=== PATIENT | male | born 1960 | race African-American/Black ===

== ENCOUNTER 2018-01-24 10:14 | Observation (INO) | payer OTHER ==
[~2018-01-24] VITALS: Ht 172.7 cm; Wt 83.5 kg
[~2018-01-24 10:14] MED LIST: CYAN10005 PO; FOLI1TAB16 PO; TADA5TAB PO
[2018-01-24] MEDS ORDERED: MECLIZINE 12.5 MG TABLET. PO PRN (10:45)
[2018-01-24 11:07] LABS: BASO # 0.1 x10^3/uL (0.0-0.2); BASO % 2 % (0-3); EOS # 0.2 x10^3/uL (0.0-0.7); EOS % 6 % (0-3); HEMOGLOBIN 14.5 g/dL (13.0-17.5); LYMPH # 1.4 x10^3/uL (1.0-4.8); LYMPH % 39 % (24-48); MEAN CORPUSCULAR HEMOGLOBIN 33 pg (25-35); MEAN CORPUSCULAR HGB CONC 35 g/dL (31-37); MEAN CORPUSCULAR VOLUME 92 fL (79-100); MONO # 0.3 x10^3/uL (0.0-1.1); MONO % 8 % (0-9); NEUT # 1.7 x10^3uL (1.8-7.7); NEUT % 45 % (31-73); PLATELET COUNT 211 x10^3/uL (140-400); RED BLOOD COUNT 4.44 x10^6/uL (4.30-5.70); RED CELL DISTRIBUTION WIDTH 13.7 % (11.5-14.5); WHITE BLOOD COUNT 3.6 x10^3/uL (4.0-11.0)
--- NOTE | 2018-01-24 11:23 | RAD ---
EXAM: Chest, 2 views. HISTORY: Dizziness. COMPARISON: None. FINDINGS: Frontal and lateral views of the chest are obtained. There is no infiltrate, effusion or pneumothorax. There is slight elevation of the right hemidiaphragm. There is suspected right middle lobe atelectasis or scarring. The heart is normal in size. There is cervical spinal fusion instrumentation. IMPRESSION: 1. No acute pulmonary finding. 2. Mild elevation of the right hemidiaphragm and suspected middle lobe atelectasis or scarring. Electronically signed by: Cristine Gerardo MD (01/24/2018 11:19 AM) [place] [id number]
--- NOTE | 2018-01-24 11:24 | RAD ---
CT HEAD WO CONTRAST History: Dizziness and chest pain, symptoms for greater than 24 hours Comparison: None. Technique: Noncontrast CT imaging was performed of the head. Exposure: One or more of the following individualized dose reduction techniques were utilized for this examination: 1. Automated exposure control 2. Adjustment of the mA and/or kV according to patient size 3. Use of iterative reconstruction technique. Findings: No acute extra-axial or parenchymal hemorrhage is identified. There is no significant intra-axial mass effect, midline shift, or extra-axial fluid collection. The huang-white differentiation of the major vascular territories is preserved. The ventricles, sulci, and cisterns are within normal limits in size and configuration. The mastoid air cells and the visualized paranasal sinuses are aerated. No acute calvarial abnormality is identified. Impression: 1. No acute intracranial abnormality is identified. Electronically signed by: Murtaza New MD (01/24/2018 11:21 AM) [id number]
[2018-01-24 11:32] LABS: ALBUMIN 3.7 g/dL (3.4-5.0); CALCIUM 8.9 mg/dL (8.5-10.1); GFR 93.2; MAGNESIUM 2.1 mg/dL (1.8-2.4); POTASSIUM 3.8 mmol/L (3.5-5.1); TOTAL BILIRUBIN 0.5 mg/dL (0.2-1.0); TOTAL PROTEIN 7.5 g/dL (6.4-8.2)
--- NOTE | 2018-01-24 11:55 | PHYS DOC ---
Past History Past Medical History: No Pertinent History, GERD Past Surgical History: No Surgical History, Other Smoking: Non-smoker Alcohol Use: Occasionally Additional Alcohol Information: states drinks 2 rum/coke daily Drug Use: None Adult General Chief Complaint Chief Complaint: DIZZY/LIGHT HEADED [facility] HPI 57-year-old male patient complaining of constant dizziness since he woke up this morning that getting worse with movement of his head and change of position. Patient complaining of mild headache and blurred vision without nausea , change of hearing, tinnitus, fever and chills, focal neuro deficit, balance problems, head injury. Patient states he had episodes of mild dizziness previously but never had dizziness like today. Patient states for the last 3 hours he had tightness in substernal area and rated his pain for over 10 without shortness of breath or radiation of pain. Patient was seen by his primary care physician and had EKG and instructed to come to emergency room. Review of Systems Review of Systems Constitutional: Denies fever or chills [] Eyes: Denies change in visual acuity, redness, or eye pain ,reports mild vision[ ] HENT: Denies nasal congestion or sore throat [] Respiratory: Denies cough or shortness of breath [] Cardiovascular: No additional information not addressed in HPI [] GI: Denies abdominal pain, nausea, vomiting, bloody stools or diarrhea [] : Denies dysuria or hematuria [] Musculoskeletal: Denies back pain or joint pain [] Integument: Denies rash or skin lesions [] Neurologic: Reports headache and dizziness, denies focal weakness or sensory changes [] Endocrine: Denies polyuria or polydipsia [] All other systems were reviewed and found to be within normal limits, except as documented in this note. Current Medications Current Medications Current Medications Medications (Trade) Dose Ordered Sig/Sebastian Start Time Stop Time Status Last Admin Dose Admin Meclizine HCl (Antivert) 25 mg PRN Q6HRS PRN 01/24/18 10:45 01/24/18 11:14 25 MG Allergies Allergies Allergies Coded Allergies Type Severity Reaction Last Updated Verified Penicillins Allergy Intermediate 04/12/16 Yes hydrocodone Allergy Intermediate 04/12/16 Yes Physical Exam Physical Exam Constitutional: Well developed, well nourished, mild distress, non-toxic appearance. [] HENT: Normocephalic, atraumatic, bilateral external ears normal, oropharynx moist, no oral exudates, nose normal. [] Eyes: PERRLA, EOMI, conjunctiva normal, no discharge. [] Neck: Normal range of motion, no tenderness, supple, no stridor. [] Cardiovascular:Heart rate regular rhythm, no murmur [] Lungs & Thorax: Bilateral breath sounds clear to auscultation [] Abdomen: Bowel sounds normal, soft, no tenderness, no masses, no pulsatile masses. [] Skin: Warm, dry, no erythema, no rash. [] Back: No tenderness, no CVA tenderness. [] Extremities: No tenderness, no cyanosis, no clubbing, ROM intact, no edema. [] Neurologic: Alert and oriented X 3, normal motor function, normal sensory function, no focal deficits noted. [] Psychologic: Affect normal, judgement normal, mood normal. [] Current Patient Data Vital Signs Vital Signs Date Time Temp Pulse Resp B/P (MAP) Pulse Ox O2 Delivery O2 Flow Rate FiO2 01/24/18 11:28 66 20 159/104 (122) 99 Room Air 01/24/18 10:14 98.6 Lab Results Laboratory Tests Test 01/24/18 10:55 White Blood Count 3.6 x10^3/uL (4.0-11.0) L Red Blood Count 4.44 x10^6/uL (4.30-5.70) Hemoglobin 14.5 g/dL (13.0-17.5) Hematocrit 41.0 % (39.0-53.0) Mean Corpuscular Volume 92 fL (79-100) Mean Corpuscular Hemoglobin 33 pg (25-35) Mean Corpuscular Hemoglobin Concent 35 g/dL (31-37) Red Cell Distribution Width 13.7 % (11.5-14.5) Platelet Count 211 x10^3/uL (140-400) Neutrophils (%) (Auto) 45 % (31-73) Lymphocytes (%) (Auto) 39 % (24-48) Monocytes (%) (Auto) 8 % (0-9) Eosinophils (%) (Auto) 6 % (0-3) H Basophils (%) (Auto) 2 % (0-3) Neutrophils # (Auto) 1.7 x10^3uL (1.8-7.7) L Lymphocytes # (Auto) 1.4 x10^3/uL (1.0-4.8) Monocytes # (Auto) 0.3 x10^3/uL (0.0-1.1) Eosinophils # (Auto) 0.2 x10^3/uL (0.0-0.7) Basophils # (Auto) 0.1 x10^3/uL (0.0-0.2) Sodium Level 138 mmol/L (136-145) Potassium Level 3.8 mmol/L (3.5-5.1) Chloride Level 103 mmol/L (98-107) Carbon Dioxide Level 27 mmol/L (21-32) Anion Gap 8 (6-14) Blood Urea Nitrogen 15 mg/dL (8-26) Creatinine 1.0 mg/dL (0.7-1.3) Estimated GFR (Cockcroft-Gault) 93.2 BUN/Creatinine Ratio 15 (6-20) Glucose Level 103 mg/dL (70-99) H Calcium Level 8.9 mg/dL (8.5-10.1) Magnesium Level 2.1 mg/dL (1.8-2.4) Total Bilirubin 0.5 mg/dL (0.2-1.0) Aspartate Amino Transferase (AST) 30 U/L (15-37) Alanine Aminotransferase (ALT) 35 U/L (16-63) Alkaline Phosphatase 110 U/L (46-116) Creatine Kinase 875 U/L (39-308) H Creatine Kinase MB (Mass) 12.6 ng/mL (0.0-3.6) H Creatine Kinase MB Relative Index 1.4 % (0-4) Troponin I Quantitative < 0.017 ng/mL (0-0.055) XV-Hgp-L-Type Natriuretic Peptide 24 pg/mL (0-124) Total Protein 7.5 g/dL (6.4-8.2) Albumin 3.7 g/dL (3.4-5.0) Albumin/Globulin Ratio 1.0 (1.0-1.7) EKG EKG EKG interpreted by me. EKG at 1036 showed normal sinus rhythm at rate of 69, Q wave in inferior leads, no acute ST and T wave abnormality[] Radiology/Procedures Radiology/Procedures [] [address] [address] IMAGING REPORT Signed PATIENT: CHERRI LOMELI ACCOUNT: [id number] : 1960 LOCATION: ER AGE: 57 SEX: M EXAM STATUS: REG ER ORD. PHYSICIAN: GUERDA BURKETT MD REASON: dizziness and chest pain PROCEDURE: CHEST PA & LATERAL EXAM: Chest, 2 views. HISTORY: Dizziness. COMPARISON: None. FINDINGS: Frontal and lateral views of the chest are obtained. There is no infiltrate, effusion or pneumothorax. There is slight elevation of the right hemidiaphragm. There is suspected right middle lobe atelectasis or scarring. The heart is normal in size. There is cervical spinal fusion instrumentation. IMPRESSION: 1. No acute pulmonary finding. 2. Mild elevation of the right hemidiaphragm and suspected middle lobe atelectasis or scarring. Electronically signed by: Cristine Fuentes MD (01/24/2018 11:19 AM) [place] [id number] DICTATED AND SIGNED BY: CRISTINE FUENTES MD DATE: 01/24/18 3825 CC: BRAN CARO MD; GUERDA BURKETT MD ~ Course & Med Decision Making Course & Med Decision Making Pertinent Labs and Imaging studies reviewed. (See chart for details) Evaluation of patient in ER showed 57-year-old male patient with complaining of constant dizziness since this morning and chest pain for the last few of breath. Patient had unremarkable physical exam, with the head, EKG and labs except for mild elevation of CPK and CK-MB. Patient stated he he did heavy physical activity yesterday. Patient had mild elevation of blood pressure of 150s without history of hypertension and negative orthostatic vitals. Patient treated with IV fluid , meclizine, Toradol and states his headache did not change. Plan to admit the patient for observation. Dr. Caro informed at 1219 and agreed with plan of admission. Patient and his family informed of plan of care. Dragon Disclaimer Dragon Disclaimer This electronic medical record was generated, in whole or in part, using a voice recognition dictation system. Departure Departure: Impression: Primary Impression: Acute chest pain Additional Impressions: Benign positional vertigo Rhabdomyolysis Headache Disposition: ADMITTED INPATIENT (At 1219) Admitting Physician: Bran Caro Condition: IMPROVED Referrals: BRAN CARO MD (PCP) Problem Qualifiers GUERDA BURKETT MD Jan 24, 2018 11:55
[2018-01-24 12:29] LABS: BACTERIA,URINE 0 /HPF (0-FEW); BARBITURATES NEG (NEG); BENZODIAZEPINES NEG (NEG); BILIRUBIN,URINE NEG (NEG); CANNABINOIDS NEG (NEG); CLARITY,URINE CLEAR; COCAINE NEG (NEG); COLOR,URINE AMBER; GLUCOSE,URINE NEG (NEG); METHADONE NEG (NEG); NITRITE,URINE NEG (NEG); OPIATES NEG (NEG); PHENCYCLIDINE NEG (NEG); RBC,URINE 0 /HPF (0-2); SQUAMOUS EPITHELIAL CELL,UR FEW /LPF; UROBILINOGEN,URINE 1 mg/dL (0.2 mg/dL)
[2018-01-24 12:30] LABS: AMPHETAMINE/METHAMPHETAMINE NEG (NEG)
[2018-01-24] MEDS ORDERED: IV NORMAL SALINE 1,000ML 1,000 ML IV ONE (12:30)
[2018-01-24] MEDS ORDERED: KETOROLAC 30 MG/ML VIAL. IV ONE (12:40)
[2018-01-24] MEDS ORDERED: OMEP20TA63 PO (13:43)
[2018-01-24 13:51] VITALS: BP 149/94
[2018-01-24] MEDS ORDERED: NALBUPHINE 10 MG/ML AMPUL. IM ONE (14:15)
--- NOTE | 2018-01-24 16:11 | EKG ---
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
[2018-01-24] MEDS: IV NORMAL SALINE 1,000ML 1,000 ML IV SCH (18:30)
[2018-01-24 18:41] VITALS: BP 141/89
[2018-01-24 23:45] VITALS: BP 147/87
[2018-01-25] MEDS: IV NORMAL SALINE 1,000ML 1,000 ML IV SCH ×3 (05:14→22:12)
[2018-01-25 05:37] VITALS: BP 143/92
[2018-01-25] MEDS: FOLIC ACID 1 MG TABLET PO SCH (10:14)
[2018-01-25] MEDS: CYANOCOBALAMIN (VITAMIN B-12) 1,000 MCG TABLET. PO SCH (10:14)
[2018-01-25] MEDS: PANTOPRAZOLE 40 MG TABLET. PO SCH (10:14)
[2018-01-25 10:51] VITALS: BP 162/107
[2018-01-25] MEDS ORDERED: ACETAMINOPHEN 500 MG TABLET PO PRN (12:15)
[2018-01-25] MEDS: amLODIPine BESYLATE 5 MG TABLET PO SCH (12:48)
[2018-01-25] MEDS: ACETAMINOPHEN 500 MG TABLET PO PRN ×2 (12:49→18:10)
[2018-01-25 14:41] VITALS: BP 148/89
[2018-01-25] MEDS ORDERED: KETOROLAC 30 MG/ML VIAL. IV PRN (15:30)
--- NOTE | 2018-01-25 15:39 | HP ---
ADMIT DATE: 01/24/2018 CHIEF COMPLAINT: Dizziness and headaches. HISTORY OF PRESENT ILLNESS: This is a very pleasant 57-year-old -[place] Citizen male who was admitted through the Emergency Room today after he presented with chief complaints of acute onset of dizziness, described and steadiness and started this morning after he getting out of the bed. He denies spinning; however, the dizziness usually aggravated by changing his body positions or turning his head positions to any directions quickly. He denies nausea, vomiting, photophobia or phonophobia. He also described a blurred vision. The patient denies diplopia, dysphagia, dysarthria, weakness, and paresthesia. He also described epigastric and sometimes substernal chest pain, but he stated his symptoms were there for a long time. He underwent cardiac catheterization in 2016 and revealed no evidence of coronary artery disease. An echocardiogram revealed a normal left ventricular ejection fraction of 55%. The patient is on a business of [employer] and he was in the field yesterday and he walked too hard. He was given an injection of new pain and meclizine and according to the patient, his symptoms have improved and his headaches rated at 2/10 at this time. Initial nonenhanced head CT scan revealed no acute intracranial process. The patient also complains of intermittent lower back pain and he related to degenerative disk disease of the lumbar spine, required surgery and sometimes, he complains of intermittent neck pain radiating to the shoulder blades. The patient denies any recent falls or injuries. PAST MEDICAL HISTORY: Significant for rheumatoid arthritis, substernal chest pain, chronic headaches, GERD, neck and lower back pain. PAST SURGICAL HISTORY: Significant for hemorrhoidectomy, cervical spine and lumbosacral spine surgeries. FAMILY HISTORY: Positive for cardiovascular disease. SOCIAL HISTORY: The patient is . He has three children. He denies smoking, but he drinks alcohol nightly. REVIEW OF SYSTEMS: A 10-point review of system was performed and consistent to his intermittent dizziness described as unsteadiness when he changes his body positions or his head positions quickly. Otherwise, as mentioned above in history of present illness. CURRENT MEDICATIONS: Meclizine 25 mg at bedtime q.6 hours p.r.n. He was given Nubain 10 mg IM injection and previously given a Toradol 30 mg IV and he received 1 liter of normal saline. The patient takes folic acid, vitamin B12, and Prilosec. PHYSICAL EXAMINATION: GENERAL: Well-developed, well-nourished -[place] Citizen male, in no acute distress. He weighs 180 pounds, height 68 inches, and his BMI of 27.4. HEENT: Normocephalic, atraumatic, otherwise unremarkable. NECK: Supple. Negative for carotid bruit, lymphadenopathy or thyromegaly. LUNGS: Clear to A and P. CARDIOVASCULAR: Regular rate and rhythm, normal S1, S2. There is no S3, S4, murmur. ABDOMEN: Soft. Bowel sounds positive. EXTREMITIES: Negative for cyanosis, clubbing, edema. NEUROLOGIC: 1. Mental status: The patient is alert and oriented x 3. Speech is difficult. There is no language dysfunction. The patient denies hallucination or delusion. 2. Cranial nerves: Visual pham are full. The pupils are reactive to light and accommodation. Extraocular movements are intact. There is no nystagmus. There is no facial motor or sensory deficit. Hearing is intact bilaterally; however, the patient stated he has mild hearing loss. The palate elevated symmetrically. Sternocleidomastoid muscles are powerful bilaterally. The patient shrugs his shoulders symmetrically and protrudes his tongue in the midline without fasciculation or atrophy. 3. Motor Examination: No focal muscle bulk was seen. The tone is normal. The strength is 5/5 in the upper extremities 4/5 in the proximal lower extremities. 4. Sensory Examination: Reveals normal pinprick and light touch senses throughout. Deep tendon reflexes were symmetric and active. Deep tendon reflexes were symmetrical and hypoactive throughout. Stance is steady and the gait is normal. LABORATORY DATA: The CBC of blood cells of 3,600, hemoglobin for 14.5, hematocrit 41, platelet count 211,000. Chemistry revealed sodium of 138, potassium 3.8, chloride 103, CO2 of 27, BUN 15, creatinine 1, glucose at 1.3, calcium 8.9, liver enzymes are normal. Creatine kinase is elevated at 875, CK-MB index is normal at 1.4. Troponin level is normal and NPB is 24. Urinalysis is negative. Urine drug screen is negative as well. IMPRESSION: 1. New onset of dizziness, aggravated by quick changes of body positions or to make quickly to any directions without evidence of nystagmus, benign positional vertigo versus dehydration with elevated creatinine kinase. 2. Mild leukopenia. 3. History of rheumatoid arthritis, chronic low back pain, and neck pain secondary to degenerative disk disease, required surgeries. RECOMMENDATION: 1. Continue with the meclizine for now and careful hydrations with 1 liter of normal saline. 2. Continue with the current management for tension headache with non-steroidal anti-inflammatory drugs as needed. We will repeat his creatinine kinase in the morning. BRAN CARO MD DR: LAURA/gil JOB#: [id number] / [id number]
--- NOTE | 2018-01-25 15:56 | PN ---
DATE: 01/25/2018 SUBJECTIVE: The patient denies any new neurological complaints. He complains of intermittent mild frontal headaches. He denies nausea, vomiting, photophobia, phonophobia, chest pain, shortness of breath or palpitations. The patient stated his dizziness is gone. OBJECTIVE: GENERAL: Well-developed, well-nourished male, not in acute distress. VITAL SIGNS: Blood pressure 148/89, respiratory rate 20, pulse is 76, temperature 98.3, oxygen saturation 97% on room air. HEENT: Normocephalic, atraumatic, otherwise unremarkable. NECK: Supple. Negative for carotid bruit, lymphadenopathy, or thyromegaly. LUNGS: Clear to A and P. CARDIOVASCULAR: Regular rate and rhythm, normal S1-S2. There is no S3, S4, or murmur. ABDOMEN: Soft. Bowel sounds positive. EXTREMITIES: Negative for cyanosis, clubbing, or pitting edema. NEUROLOGICAL EXAM: Mental Status: The patient is alert and oriented x 3. Speech is fluent. There is no language dysfunction. Memory, judgment, and abstract thinking are normal. The patient denies hallucination or delusion. Cranial nerves are intact. Motor Examination: No focal muscle bulk was seen. The tone is normal. The strength is 5/5 throughout. Sensory examination revealed normal pinprick, light touch, vibratory, and position senses. Deep tendon reflexes were symmetric and active without pathologic responses. Gait and coordination are normal. LABORATORY DATA: CK is down to 527 from 877 yesterday. Troponin level is less than 0.017. IMPRESSION: 1. Acute onset of headaches and dizziness - improved. 2. Hypertension. 3. Benign positional vertigo versus dehydration and elevated CK. 4. History of rheumatoid arthritis. 5. Chronic low back pain and neck pain secondary to degenerative disk disease, requiring surgeries. 6. Dehydration versus rhabdomyolysis. RECOMMENDATIONS: 1. Continue with current management initiated by Dr. Cannon including IV fluid with Tylenol for headaches. 2. The patient has been scheduled to be seen by a associate professor of radiology today. Neurologically he is stable. M Tiffanie FAIRCHILD MD DR: IDALIA/gil JOB#: [id number] / [id number]
--- NOTE | 2018-01-25 16:29 | EKG ---
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
[2018-01-25 19:49] VITALS: BP 138/86
[2018-01-25 23:25] VITALS: BP 128/81
[2018-01-26] MEDS: ACETAMINOPHEN 500 MG TABLET PO PRN ×2 (05:25→11:30)
[2018-01-26 05:32] VITALS: BP 131/86
[2018-01-26 06:44] LABS: CALCIUM 8.5 mg/dL (8.5-10.1); GFR 93.2; POTASSIUM 3.7 mmol/L (3.5-5.1)
[2018-01-26 06:50] LABS: HEMATOCRIT 43.9 % (39.0-53.0); RED BLOOD COUNT 4.69 x10^6/uL (4.30-5.70); RED CELL DISTRIBUTION WIDTH 13.8 % (11.5-14.5); WHITE BLOOD COUNT 3.1 x10^3/uL (4.0-11.0)
[2018-01-26] MEDS: FOLIC ACID 1 MG TABLET PO SCH (08:49)
[2018-01-26] MEDS: amLODIPine BESYLATE 5 MG TABLET PO SCH (08:49)
[2018-01-26] MEDS: PANTOPRAZOLE 40 MG TABLET. PO SCH (08:49)
[2018-01-26] MEDS: CYANOCOBALAMIN (VITAMIN B-12) 1,000 MCG TABLET. PO SCH (08:50)
[2018-01-26 11:07] VITALS: BP 149/98
--- NOTE | 2018-01-26 11:55 | PDOC2 ---
CONSULT Date of Admission DATE: 01/26/18 TIME: 11:55 Reason for Consult: Dizziness Referring Physician: Dr. Cannon Chief Complaint Dizziness Source: Chart review, Patient Problem List Problems Medical Problems: (1) Acute chest pain Status: Acute (2) Benign positional vertigo Status: Acute (3) Headache Status: Acute (4) Rhabdomyolysis Status: Acute History of Present Illness 57-year-old -[place] male with history of hypertension presented with dizziness and lightheadedness that started after he got out of his bed yesterday morning. Since symptoms did not seem to get better, he presented to ED. On further interrogation, he stated that he has had several episodes of dizziness in the past not necessarily related to posture. He denied any valentina syncope as such. He also complained of intermittent episodes of atypical chest pain but denied any orthopnea/PND or palpitations. Past Medical History Hypertension Rheumatoid arthritis Chronic headaches Gastroesophageal reflux disease Past Surgical History Hemorrhoidectomy Cervical and lumbosacral spine surgeries Family History Hypertension Social History Admitted to social alcohol intake but denied any smoking or drug abuse Current Medications Current Medications Meclizine HCl (Antivert) 25 mg PRN Q6HRS PRN PO DIZZINESS Last administered on 01/24/18at 11:14; Start 01/24/18 at 10:45 Sodium Chloride 1,000 ml @ 1,000 mls/hr 1X ONCE IV Last administered on at 12:39; Start 01/24/18 at 12:30; Stop 01/24/18 at 13:29; Status DC Ketorolac Tromethamine (Toradol) 30 mg 1X ONCE IV Last administered on at 12:39; Start 01/24/18 at 12:40; Stop 01/24/18 at 12:41; Status DC Nalbuphine HCl (Nubain) 10 mg 1X ONCE IM Last administered on 01/24/18at 14:12 ; Start 01/24/18 at 14:15; Stop 01/24/18 at 14:16; Status DC Sodium Chloride 1,000 ml @ 75 mls/hr [id number] IV Last administered on at 22:12; Start 01/24/18 at 18:30 Cyanocobalamin (Vitamin B-12) 2,000 mcg DAILY PO Last administered on at 08:50; Start 01/25/18 at 09:00 Folic Acid (Folic Acid) 1 mg DAILY PO Last administered on 01/26/18at 08:49; Start 01/25/18 at 09:00 Pantoprazole Sodium (Protonix) 40 mg DAILYAC PO Last administered on 01/26/18at 08:49; Start 01/25/18 at 07:30 Acetaminophen (Tylenol) 650 mg PRN Q6HRS PRN PO PAIN / TEMP; Start 01/25/18 at 12:15; Stop 01/25/18 at 12:33; Status DC Amlodipine Besylate (Norvasc) 10 mg DAILY PO Last administered on 01/26/18at 08: 49; Start 01/25/18 at 12:15 Acetaminophen (Tylenol) 1,000 mg PRN Q6HRS PRN PO PAIN / TEMP Last administered on 01/26/18at 11:30; Start 01/25/18 at 12:33 Ketorolac Tromethamine (Toradol) 30 mg Q8HRS PRN IV PAIN Last administered on at 15:57; Start 01/25/18 at 15:30; Stop 01/30/18 at 15:29 Active Scripts Active Reported Prilosec Otc (Omeprazole Magnesium) 20 Mg Tablet.dr 1 Tab PO DAILY Vitamin B-12 (Cyanocobalamin (Vitamin B-12)) 1,000 Mcg Tablet 2,000 Mcg PO DAILY Folic Acid 1 Mg Tablet 1 Mg PO DAILY Allergies: Coded Allergies: Penicillins (Verified Allergy, Intermediate, 04/12/16) hydrocodone (Verified Allergy, Intermediate, 04/12/16) PSYCHOLOGICAL ROS: No: Hallucinations Eyes: No: Loss of vision HEENT: YES: Heacaches, No: Epistaxis Respiratory: No: Hemoptysis, Shortness of breath Cardiovascular: yes: Chest Pain, No: Edema Gastrointestinal: No: Vomiting Neurological: YES: Dizziness, No: Memory Loss, Seizures Skin: No: Rash General: Alert, Oriented X3 HEENT: Atraumatic, PERRLA Lungs: Clear to auscultation Heart: Regular rate Abdomen: Soft, No tenderness Extremities: No edema VITALS Vital Signs Date Time Temp Pulse Resp B/P (MAP) Pulse Ox O2 Delivery O2 Flow Rate FiO2 01/26/18 11:07 97.6 79 20 149/98 (115) 98 Room Air Labs Laboratory Tests Test 01/24/18 12:10 01/24/18 15:17 01/24/18 18:30 01/25/18 05:45 Urine Collection Type Unknown Urine Color Mei Urine Clarity Clear Urine pH 7.0 Urine Specific [place] 1.020 Urine Protein Trace (NEG-TRACE) Urine Glucose (UA) Neg mg/dL (NEG) Urine Ketones (Stick) Neg mg/dL (NEG) Urine Blood Neg (NEG) Urine Nitrite Neg (NEG) Urine Bilirubin Neg (NEG) Urine Urobilinogen Dipstick 1 mg/dL (0.2 mg/dL) Urine Leukocyte Esterase Neg (NEG) Urine RBC 0 /HPF (0-2) Urine WBC 1-4 /HPF (0-4) Urine Squamous Epithelial Cells Few /LPF Urine Bacteria 0 /HPF (0-FEW) Urine Mucus Slight /LPF Urine Opiates Screen Neg (NEG) Urine Methadone Screen Neg (NEG) Urine Barbiturates Neg (NEG) Urine Phencyclidine Screen Neg (NEG) Urine Amphetamine/Methamphetamine Neg (NEG) Urine Benzodiazepines Screen Neg (NEG) Urine Cocaine Screen Neg (NEG) Urine Cannabinoids Screen Neg (NEG) Urine Ethyl Alcohol Neg (NEG) Troponin I Quantitative < 0.017 ng/mL (0-0.055) < 0.017 ng/mL (0-0.055) Creatine Kinase 527 U/L (39-308) Test 01/26/18 06:07 White Blood Count 3.1 x10^3/uL (4.0-11.0) Red Blood Count 4.69 x10^6/uL (4.30-5.70) Hemoglobin 15.0 g/dL (13.0-17.5) Hematocrit 43.9 % (39.0-53.0) Mean Corpuscular Volume 94 fL (79-100) Mean Corpuscular Hemoglobin 32 pg (25-35) Mean Corpuscular Hemoglobin Concent 34 g/dL (31-37) Red Cell Distribution Width 13.8 % (11.5-14.5) Platelet Count 208 x10^3/uL (140-400) Sodium Level 138 mmol/L (136-145) Potassium Level 3.7 mmol/L (3.5-5.1) Chloride Level 104 mmol/L (98-107) Carbon Dioxide Level 25 mmol/L (21-32) Anion Gap 9 (6-14) Blood Urea Nitrogen 8 mg/dL (8-26) Creatinine 1.0 mg/dL (0.7-1.3) Estimated GFR (Cockcroft-Gault) 93.2 Glucose Level 111 mg/dL (70-99) Calcium Level 8.5 mg/dL (8.5-10.1) Assessment/Plan 1. Dizziness of uncertain etiology most probably related to his elevated blood pressure. Cannot rule out the possibility of benign positional vertigo. Neurology team following. 2-D echo in 2016 showed normal LV systolic function. If workup is negative, we will consider outpatient event monitor and repeat 2-D echo. 2. Accelerated hypertension: Better controlled since admission 3. Chest pain with atypical features most probably GI etiology. Patient had cardiac catheterization in 2016 that did not show any significant coronary artery disease. Thank you for your consultation. Problems: SUNNI MCCALL MD Jan 26, 2018 11:55
[2018-01-26] MEDS ORDERED: AMLO10TA2 PO (13:10)
--- NOTE | 2018-01-26 13:35 | DS ---
DATE OF DISCHARGE: 01/26/2018 DATE OF DISCHARGE: 01/26/2018 REFERRING PHYSICIAN: Duran Cannon M.D. DISCHARGE DIAGNOSES: 1. New onset of dizziness, aggravated by quick changes of body positions or head positions. Rule out benign positional vertigo. 2. Dehydration/rhabdomyolysis. 3. Tension headaches. 4. Acute chest pain. 5. Gastroesophageal reflux disease. 6. History of rheumatoid arthritis. HOSPITAL COURSE: The patient is a 57-year-old -[place] male who was admitted through Emergency Room with a chief complaint of dizziness, chest pain and headaches. During this hospitalization, he was found to have hypertension. Because of chest pain, EKG and cardiac enzymes along with troponin levels were performed and revealed no abnormalities. Initial head CT scan revealed no acute intracranial abnormalities and chest x-ray was performed and revealed no acute pulmonary findings and possible right middle lobe atelectasis of mild severity. Because of his high blood pressure, the patient was placed on amlodipine 10 mg daily. . ____, obiee report developer has seen the patient and recommended followup on an outpatient basis for possible treadmill stress test. After being on amlodipine, his blood pressure has improved. Currently, the patient denies any recurrence of dizziness or chest pain. His vital signs remained stable and blood pressure this morning was 131/86, respiratory rate 20 and pulse of regular sinus at 79 and he was afebrile. His medical and neurological examinations are unremarkable. CONDITION ON DISCHARGE: Good. CURRENT HOME MEDICATIONS ON DISCHARGE: Include amlodipine 10 mg p.o. daily, folic acid 1 mg daily, vitamin B12 2000 mcg daily, pantoprazole 40 mg daily, meclizine 25 mg q.6 hours on p.r.n. basis for dizziness. DISCHARGE INSTRUCTIONS; 1. Continue with current hospital medications as mentioned above. 2. Follow up with Dr. Cannon after 2 weeks. 3. Follow up with obiee report developer. M Tiffanie FAIRCHILD MD DR: IDALIA/gil JOB#: [id number] / [id number]
== END 2018-01-26 13:30 | disposition home or self-care (01) ==
LOC: ER 10:14 → 1 SOUTH 13:40 → INTOOBSV 13:40
PROVIDERS: ADMIT Family Medicine; ATTEND Family Medicine
DX: R42 Dizziness and giddiness (principal); K21.9 Gastro-esophageal reflux disease without esophagitis; G89.29 Other chronic pain; D72.819 Decreased white blood cell count, unspecified; M06.9 Rheumatoid arthritis, unspecified; I10 Essential (primary) hypertension; E86.0 Dehydration; Z82.49 Family history of ischemic heart disease and other diseases of the circulatory system
CPT/HCPCS: 36415; 70450; 71046; 80048; 80053; 80307; 81001; 82550; 82553; 83735; 83880; 84484; 85025; 85027; 93005; 96361; 96372; 96374; 96376; 99285; G0378; G0379; J1885; J2300; J8597; G0479; J7030

== ENCOUNTER 2018-02-16 06:38 | Emergency (ER) | payer OTHER ==
[~2018-02-16] VITALS: Ht 172.7 cm; Wt 78.0 kg
[~2018-02-16 06:38] MED LIST changes: +AMLO10TA2 PO; +OMEP20TA63 PO
[2018-02-16 06:57] VITALS: BP 125/88
[2018-02-16] MEDS ORDERED: KETOROLAC 60 MG/2 ML VIAL. IM ONE (07:00)
[2018-02-16] MEDS ORDERED: CEPH-264 PO (07:12)
[2018-02-16] MEDS ORDERED: MAGN296S9 PO (07:12)
[2018-02-16] MEDS ORDERED: OXYC-323 PO (07:12)
[2018-02-16] MEDS ORDERED: HYDR30CR61 TP ×2 (07:12→07:17)
--- NOTE | 2018-02-16 07:12 | PHYS DOC ---
Past History Past Medical History: GERD Past Surgical History: No Surgical History Smoking: Non-smoker Alcohol Use: Occasionally Drug Use: None Adult General Chief Complaint Chief Complaint: HEMORRHOIDS HPI HPI 57-year-old male patient with history of constipation and hemorrhoids complaining of pain and anal area for the last several days associated with constipation. Patient states he was seen by his primary care physician and treated with Proctofoam without improvement of his condition. Patient states he is not able to walk or sit down because of severe pain and rated his pain 10 over 10. Patient denies abdominal pain, nausea and vomiting, fever and chills. Review of Systems Review of Systems Constitutional: Denies fever or chills [] Eyes: Denies change in visual acuity, redness, or eye pain [] HENT: Denies nasal congestion or sore throat [] Respiratory: Denies cough or shortness of breath [] Cardiovascular: No additional information not addressed in HPI [] GI: Denies abdominal pain, nausea, vomiting, bloody stools or diarrhea [] : Denies dysuria or hematuria [] Musculoskeletal: Denies back pain or joint pain [] Integument: Denies rash or skin lesions [] Neurologic: Denies headache, focal weakness or sensory changes [] Endocrine: Denies polyuria or polydipsia [] All other systems were reviewed and found to be within normal limits, except as documented in this note. Current Medications Current Medications Current Medications Medications (Trade) Dose Ordered Sig/Sebastian Start Time Stop Time Status Last Admin Dose Admin Ketorolac Tromethamine (Toradol) 60 mg 1X ONCE 02/16/18 07:00 02/16/18 07:01 UNV Allergies Allergies Allergies Coded Allergies Type Severity Reaction Last Updated Verified Penicillins Allergy Intermediate 04/12/16 Yes hydrocodone Allergy Intermediate 04/12/16 Yes Physical Exam Physical Exam Constitutional: Well developed, well nourished, moderate distress, non-toxic appearance. [] HENT: Normocephalic, atraumatic Eyes: PERRLA, EOMI, conjunctiva normal, no discharge. [] Neck: Normal range of motion, no tenderness, supple, no stridor. [] Cardiovascular:Heart rate regular rhythm, no murmur [] Lungs & Thorax: Bilateral breath sounds clear to auscultation [] Abdomen: Bowel sounds normal, soft, no tenderness, no masses, no pulsatile masses. Rectal exam with present of aircraft servicer showed[ several hemorrhoidal skin tags anal area without sign of thrombosed or bleeding, anal fissure at 6 with severe tenderness, unable to complete rectal exam because of pain Neurologic: Alert and oriented X 3, normal motor function, normal sensory function, no focal deficits noted. [] Psychologic: Anxious, judgement normal, mood normal. [] Current Patient Data Vital Signs Vital Signs Date Time Temp Pulse Resp B/P (MAP) Pulse Ox O2 Delivery O2 Flow Rate FiO2 02/16/18 06:57 97.5 77 20 99 Room Air EKG EKG [] Radiology/Procedures Radiology/Procedures [] Course & Med Decision Making Course & Med Decision Making discharge: I've spoken with the patient and/or caregivers. I've explained the patient's condition, diagnosis and treatment plan based on information available to me at this time. I've answered the patient's and/or caregivers questions and addressed any concerns. The patient and/or caregivers have a good understanding the patient's diagnosis, condition and treatment plan as can be expected at this point. Vital signs have been stabilized. The patient's condition is stable for discharge from the emergency department. The patient will pursue further outpatient evaluation with her primary care provider or other designated consulting physician as outlined in the discharge instructions. Patient and/or caregivers are agreeable to this plan of care and follow-up instructions have been explained in detail. The patient and/or caregivers have received these instructions in written format and expressed understanding of these discharge instructions. The patient and her caregivers are aware that if any significant change in condition or worsening of symptoms should prompt him to immediately return to this of the closest emergency department. If an emergent department is not readily available I would encourage him to call 911. Jarad Disclaimer Dragon Disclaimer This electronic medical record was generated, in whole or in part, using a voice recognition dictation system. Departure Departure: Impression: Primary Impression: Acute anal fissure Additional Impressions: Hemorrhoids Constipation Disposition: HOME, SELF-CARE (At 0715) Condition: IMPROVED Referrals: BRAN CARO MD (PCP) NAI MEDLEY MD Patient Instructions: Anal Fissure, Adult, Constipation, Adult, Hemorrhoids, Sitz Bath Additional Instructions: Drink plenty of liquids Follow-up with your primary care physician in 3-5 days Return to ER if not getting better Use sitz baths several times a day Scripts Hydrocortisone (ANUSOL-HC) 30 Gm Cream..g. 1 MYNOR TP BID, #60 GM 2 Refills Prov: GUERDA BURKETT MD 02/16/18 Magnesium Citrate (MAGNESIUM CITRATE) 296 Ml Solution 296 ML PO ONCE, #296 ML Prov: GUERDA BURKETT MD 02/16/18 Oxycodone Hcl/Acetaminophen (PERCOCET 5-325 MG TABLET) 1 Each Tablet 1-2 TAB PO Q4-6HRS, #14 TAB Prov: GUERDA BURKETT MD 02/16/18 Cephalexin (KEFLEX) 500 Mg Capsule 1 CAP PO QID, #28 CAP Prov: GUERDA BURKETT MD 02/16/18 Problem Qualifiers GUERDA BURKETT MD Feb 16, 2018 07:12
== END 2018-02-16 07:21 | disposition home or self-care (01) ==
LOC: ER 06:38
DX: K60.0 Acute anal fissure (principal); K64.9 Unspecified hemorrhoids; K59.00 Constipation, unspecified; K21.9 Gastro-esophageal reflux disease without esophagitis; Z88.0 Allergy status to penicillin; Z88.5 Allergy status to narcotic agent
CPT/HCPCS: 96372; 99283; J1885

== ENCOUNTER 2018-02-17 21:01 | Emergency (ER) | payer OTHER ==
[~2018-02-17 21:01] MED LIST changes: +CEPH-264 PO; +HYDR30CR61 TP; +MAGN296S9 PO; +OXYC-323 PO
[2018-02-17] MEDS: IV NORMAL SALINE 1,000ML 1,000 ML IV SCH (21:16)
[2018-02-17] MEDS: IOHEXOL 300 MG/ML 75 ML VIAL. IV ONE (21:45)
[2018-02-17 21:47] LABS: CALCIUM 9.4 mg/dL (8.5-10.1); CREATININE 1.1 mg/dL (0.7-1.3); GFR 83.5; POTASSIUM 4.4 mmol/L (3.5-5.1)
--- NOTE | 2018-02-17 21:55 | RAD ---
RS Compliance Statement: One or more of the following individualized dose reduction techniques were utilized for this examination: 1. Automated exposure control 2. Adjustment of the mA and/or kV according to patient size 3. Use of iterative reconstruction technique CT HEAD WITHOUT CONTRAST History: 488978.001 Headache, dizziness, left sided weakness. Comparison: CT head without contrast, January 24, 2018. Procedure: Axial images are obtained of the head from the skull base through the vertex without IV contrast. Findings: The ventricles and sulci are normal for the patient's age. No mass-effect, midline shift, hemorrhage, extra-axial fluid collection, or obvious acute infarction is identified. Basilar cisterns are patent. Bone windows demonstrate no acute calvarial abnormality. The visualized paranasal sinuses are clear. Mastoid air cells are well aerated. IMPRESSION: No acute intracranial abnormality. Electronically signed by: Bryan Mcnair MD (02/17/2018 9:52 PM) [facility]
[2018-02-17] MEDS: KETOROLAC 30 MG/ML VIAL. IV ONE (22:32)
[2018-02-17] MEDS: METOCLOPRAMIDE HCL 10 MG/2 ML VIAL. IV ONE (22:33)
[2018-02-17] MEDS: diphenhydrAMINE 50 MG/ML VIAL IVP ONE (22:33)
[2018-02-17] MEDS: DEXAMETHASONE SOD PHOS 10 MG/ML VIAL IV ONE (22:33)
[2018-02-17 22:34] LABS: BASO % 1 % (0-3); EOS # 0.1 x10^3/uL (0.0-0.7); EOS % 3 % (0-3); HEMATOCRIT 41.7 % (39.0-53.0); HEMOGLOBIN 14.6 g/dL (13.0-17.5); LYMPH % 24 % (24-48); MEAN CORPUSCULAR HEMOGLOBIN 32 pg (25-35); MEAN CORPUSCULAR HGB CONC 35 g/dL (31-37); MEAN CORPUSCULAR VOLUME 91 fL (79-100); MONO # 0.2 x10^3/uL (0.0-1.1); MONO % 5 % (0-9); NEUT # 2.7 x10^3uL (1.8-7.7); NEUT % 67 % (31-73); PLATELET COUNT 211 x10^3/uL (140-400); RED BLOOD COUNT 4.57 x10^6/uL (4.30-5.70); RED CELL DISTRIBUTION WIDTH 13.3 % (11.5-14.5)
--- NOTE | 2018-02-17 22:34 | RAD ---
PQRS Compliance Statement: One or more of the following individualized dose reduction techniques were utilized for this examination: 1. Automated exposure control 2. Adjustment of the mA and/or kV according to patient size 3. Use of iterative reconstruction technique CT ANGIOGRAPHY HEAD Clinical Indication: Headache, dizziness, left sided weakness. Comparison: CT head without contrast, earlier same day. Technique: Helical CT imaging from about the level of C6 to the skull vertex is performed after 75 cc of Omnipaque [address] angiogram protocol. 3-D MIP reconstructions of the cervical carotid arteries and elem of Spears are performed. PQRS Compliance Statement - Stenosis calculations for CT, MR and conventional angiography are based upon measurement of the distal ICA diameter in accordance with the NASCET methodology. Stenosis calculations for carotid ultrasound studies are derived from validated velocity criteria which are known to correlate with the NASCET methodology. Findings: Visualized common carotid arteries are patent. The cervical internal carotid arteries are patent. The visualized cervical vertebral arteries are patent. No evidence of dissection. The basilar artery and posterior cerebral arteries are patent. Distal internal carotid arteries are patent. Anterior circulation is intact. No evidence of intracranial aneurysm. No abnormal enhancement in the brain parenchyma. Uncovertebral and facet joint hypertrophy contribute to neural foraminal narrowing in the cervical spine. There is anterior fusion hardware of C5, incompletely imaged. There is no cervical adenopathy. IMPRESSION: No intracranial stenosis or occlusion or aneurysm or vascular malformation. Electronically signed by: Bryan Mcnair MD (02/17/2018 10:30 PM) [facility]
[2018-02-17 23:12] VITALS: BP 147/93
--- NOTE | 2018-02-18 00:05 | PHYS DOC ---
Past History Past Medical History: Hypertension Past Surgical History: No Surgical History Smoking: Non-smoker Alcohol Use: None Drug Use: None Adult General Chief Complaint Chief Complaint: WEAKNESS/GENERALIZED HPI HPI 57-year-old male with a history of hypertension now presents to the emergency department complaining of gradual onset of headache. Patient has no visual speech changes. No problems with strength coordination or gait. No chest pain or shortness of breath no other complaints Review of Systems Review of Systems Constitutional: Denies fever or chills [] Eyes: Denies change in visual acuity, redness, or eye pain [] HENT: Denies nasal congestion or sore throat [] Respiratory: Denies cough or shortness of breath [] Cardiovascular: No additional information not addressed in HPI [] GI: Denies abdominal pain, nausea, vomiting, bloody stools or diarrhea [] : Denies dysuria or hematuria [] Musculoskeletal: Denies back pain or joint pain [] Integument: Denies rash or skin lesions [] Neurologic: Denies headache, focal weakness or sensory changes [] Endocrine: Denies polyuria or polydipsia [] All other systems were reviewed and found to be within normal limits, except as documented in this note. Current Medications Current Medications Current Medications Medications (Trade) Dose Ordered Sig/Sebastian Start Time Stop Time Status Last Admin Dose Admin Dexamethasone Sodium Phosphate (Decadron) 10 mg 1X ONCE 02/17/18 21:45 02/17/18 21:46 DC 02/17/18 22:33 10 MG Diphenhydramine HCl (Benadryl) 25 mg 1X ONCE 02/17/18 21:45 02/17/18 21:46 DC 02/17/18 22:33 25 MG Iohexol (Omnipaque 300 Mg/ml) 75 ml 1X ONCE 02/17/18 21:45 02/17/18 21:46 DC 02/17/18 21:45 75 ML Ketorolac Tromethamine (Toradol) 30 mg 1X ONCE 02/17/18 21:45 02/17/18 21:46 DC 02/17/18 22:32 30 MG Metoclopramide HCl (Reglan Vial) 10 mg 1X ONCE 02/17/18 21:45 02/17/18 21:46 DC 02/17/18 22:33 10 MG Sodium Chloride 1,000 ml @ 1,000 mls/hr Q1H 02/17/18 21:16 02/17/18 21:16 1,000 MLS/HR Allergies Allergies Allergies Coded Allergies Type Severity Reaction Last Updated Verified Penicillins Allergy Intermediate 04/12/16 Yes hydrocodone Allergy Intermediate 04/12/16 Yes Physical Exam Physical Exam Constitutional: Well developed, well nourished, no acute distress, non-toxic appearance. Supple neck no meningismus. [] HENT: Normocephalic, atraumatic, bilateral external ears normal, oropharynx moist, no oral exudates, nose normal. [] Eyes: PERRLA, EOMI, conjunctiva normal, no discharge. [] Neck: Normal range of motion, no tenderness, supple, no stridor. [] Cardiovascular:Heart rate regular rhythm, no murmur [] Lungs & Thorax: Bilateral breath sounds clear to auscultation [] Abdomen: Bowel sounds normal, soft, no tenderness, no masses, no pulsatile masses. [] Skin: Warm, dry, no erythema, no rash. [] Back: No tenderness, no CVA tenderness. [] Extremities: No tenderness, no cyanosis, no clubbing, ROM intact, no edema. [] Neurologic: Alert and oriented X 3, normal motor function, normal sensory function, no focal deficits noted. [] Psychologic: Affect normal, judgement normal, mood normal. [] Current Patient Data Vital Signs Vital Signs Date Time Temp Pulse Resp B/P (MAP) Pulse Ox O2 Delivery O2 Flow Rate FiO2 02/17/18 23:12 98.1 83 20 99 Room Air Lab Results Laboratory Tests Test 02/17/18 21:24 02/17/18 22:11 Sodium Level 136 mmol/L (136-145) Potassium Level 4.4 mmol/L (3.5-5.1) Chloride Level 101 mmol/L (98-107) Carbon Dioxide Level 28 mmol/L (21-32) Anion Gap 7 (6-14) Blood Urea Nitrogen 15 mg/dL (8-26) Creatinine 1.1 mg/dL (0.7-1.3) Estimated GFR (Cockcroft-Gault) 83.5 Glucose Level 131 mg/dL (70-99) H Calcium Level 9.4 mg/dL (8.5-10.1) White Blood Count 4.0 x10^3/uL (4.0-11.0) Red Blood Count 4.57 x10^6/uL (4.30-5.70) Hemoglobin 14.6 g/dL (13.0-17.5) Hematocrit 41.7 % (39.0-53.0) Mean Corpuscular Volume 91 fL (79-100) Mean Corpuscular Hemoglobin 32 pg (25-35) Mean Corpuscular Hemoglobin Concent 35 g/dL (31-37) Red Cell Distribution Width 13.3 % (11.5-14.5) Platelet Count 211 x10^3/uL (140-400) Neutrophils (%) (Auto) 67 % (31-73) Lymphocytes (%) (Auto) 24 % (24-48) Monocytes (%) (Auto) 5 % (0-9) Eosinophils (%) (Auto) 3 % (0-3) Basophils (%) (Auto) 1 % (0-3) Neutrophils # (Auto) 2.7 x10^3uL (1.8-7.7) Lymphocytes # (Auto) 1.0 x10^3/uL (1.0-4.8) Monocytes # (Auto) 0.2 x10^3/uL (0.0-1.1) Eosinophils # (Auto) 0.1 x10^3/uL (0.0-0.7) Basophils # (Auto) 0.0 x10^3/uL (0.0-0.2) EKG EKG [] Radiology/Procedures Radiology/Procedures CT and CTA of the head unremarkable[] Course & Med Decision Making Course & Med Decision Making Pertinent Labs and Imaging studies reviewed. (See chart for details) Signs and symptoms consistent with gradual onset of headache. Patient's blood pressure mildly uncontrolled. Workup unremarkable and patient feels improved after treatment. He is clinically well-appearing and his spouse agree with outpatient follow-up. Strict return precautions given [] Dragon Disclaimer Dragon Disclaimer This electronic medical record was generated, in whole or in part, using a voice recognition dictation system. Departure Departure: Impression: Primary Impression: Hypertension Additional Impression: Headache Disposition: 01 HOME, SELF-CARE Condition: IMPROVED Referrals: BRAN CARO MD (PCP) Patient Instructions: General Headache Without Cause, Hypertension Additional Instructions: It is not clear what caused her headache this evening. The CAT scan of your head as well as a CT angiogram of your head were both unremarkable and normal appearing. Take ibuprofen 800 mg every 6 hours and Tylenol every 4 hours as needed for any discomfort. Your blood pressure was mildly uncontrolled this evening in the 140s over 90s and this improved spontaneously to 130s over 80s. Follow-up with Dr. Caro tomorrow for reevaluation and to discuss continued blood pressure therapy going forward with dose or medication adjustments as needed. Return immediately for new severe or worsening symptoms Problem Qualifiers DEBBIE NEGRO MD Feb 18, 2018 00:04
== END 2018-02-18 00:20 | disposition home or self-care (01) ==
LOC: ER 21:01
DX: R51 Headache (principal); I10 Essential (primary) hypertension; Z88.0 Allergy status to penicillin; Z88.5 Allergy status to narcotic agent
CPT/HCPCS: 36415; 70450; 70496; 80048; 85025; 96361; 96374; 96375; 99285; J1100; J1200; J1885; J2765; Q9967; J7030

== ENCOUNTER → 2018-02-27 | Day surgery (SDC) | payer OTHER ==
[~2018-02-27] MED LIST changes: +IV RINGERS SOLUTION,LACTATED 1,000 ML IV SCH; +LIDOCAINE 2% PF Vial for OR 5 ML VIAL. ONE; +PROPOFOL 40 ML IV ONE
[2018-02-27 14:00] VITALS: BP 124/91
== END | disposition home or self-care (01) ==
LOC: SURG 11:51
PROVIDERS: ATTEND Internal Medicine Gastroenterology
DX: D12.5 Benign neoplasm of sigmoid colon (principal); K64.8 Other hemorrhoids; I10 Essential (primary) hypertension; Z98.890 Other specified postprocedural states; Z88.0 Allergy status to penicillin; Z88.8 Allergy status to other drugs, medicaments and biological substances; Z79.899 Other long term (current) drug therapy
CPT/HCPCS: 45380; J2704; J7120; 43239; 45378; J2001

== ENCOUNTER 2019-08-20 06:16 | Emergency (ER) | payer OTHER ==
[~2019-08-20] VITALS: Ht 170.2 cm; Wt 81.6 kg
[~2019-08-20 06:16] MED LIST changes: -AMLO10TA2 PO; +AMLO10TA8 PO; +CYAN-25 PO; -CYAN10005 PO; -IV RINGERS SOLUTION,LACTATED 1,000 ML IV SCH; -LIDOCAINE 2% PF Vial for OR 5 ML VIAL. ONE; -OXYC-323 PO; +OXYC1TAB15 PO; -PROPOFOL 40 ML IV ONE
--- NOTE | 2019-08-20 06:50 | PHYS DOC ---
Past History Past Medical History: Kidney Stones Past Surgical History: Other Additional Past Surgical Histo: back and neck, 2 hemorrhoid Smoking: Non-smoker Alcohol Use: Occasionally Drug Use: None Adult General Chief Complaint Chief Complaint: ABDOMINAL PAIN HPI HPI 59-year-old male presents with report of 1 week history of intermittent left flank pain with radiation to left lower quadrant which became worse this morning. Patient reports he had seen his PCP on Saturday when they obtained blood work. Patient reports he has not received the results. Denies nausea. Denies diarrhea. Denies trauma. Denies rash. Denies fever or chills. Review of Systems Review of Systems Constitutional: Denies fever or chills Eyes: Denies redness or eye pain HENT: Denies nasal congestion or sore throat Respiratory: Denies cough or shortness of breath Cardiovascular: Denies chest pain or palpitations GI: Reports left lower abdominal pain; denies nausea or vomiting : Denies dysuria or hematuria Musculoskeletal: Reports left flank and back pain Integument: Denies rash or skin lesions Neurologic: Denies headache, focal weakness or sensory changes Complete systems were reviewed and found to be within normal limits, except as documented in this note. Current Medications Current Medications Current Medications Medications (Trade) Dose Ordered Sig/Sebastian Start Time Stop Time Status Last Admin Dose Admin Ketorolac Tromethamine (Toradol 15mg Vial) 15 mg 1X ONCE 08/20/19 06:45 08/20/19 06:46 UNV Metoclopramide HCl (Reglan Vial) 10 mg 1X ONCE 08/20/19 06:45 08/20/19 06:46 UNV Sodium Chloride 1,000 ml @ 1,000 mls/hr 1X ONCE 08/20/19 06:45 08/20/19 07:44 UNV Allergies Allergies Allergies Coded Allergies Type Severity Reaction Last Updated Verified Penicillins Allergy Intermediate 04/12/16 Yes amoxicillin Allergy Intermediate Itching 08/20/19 Yes hydrocodone Allergy Intermediate 04/12/16 Yes Physical Exam Physical Exam Constitutional: Well developed, well nourished, no acute distress, non-toxic appearance HENT: Normocephalic, atraumatic, oropharynx moist Eyes: Conjunctiva normal, no discharge Neck: Normal range of motion, no tenderness, supple Cardiovascular: Heart rate normal, regular rhythm Lungs & Thorax: Bilateral breath sounds clear to auscultation, no wheezing Abdomen: Soft, left lower quadrant tenderness Skin: Warm, dry, no erythema, no rash Back: No tenderness, left CVA tenderness Extremities: No tenderness, ROM intact, no edema Neurologic: Alert and oriented X 3, no focal deficits noted Psychologic: Affect normal, judgement normal Current Patient Data Vital Signs Vital Signs Date Time Temp Pulse Resp B/P (MAP) Pulse Ox O2 Delivery O2 Flow Rate FiO2 08/20/19 06:21 97.8 78 20 97 Room Air EKG EKG [] Radiology/Procedures Radiology/Procedures PROCEDURE: CT ABDOMEN PELVIS WO CONTRAST CT ABDOMEN PELVIS WO CONTRAST INDICATION: Left flank pain EXAM: Noncontrast CT of the abdomen and pelvis. Coronal and sagittal reformatted images were performed. PQRS compliance statement: One or more of the following individualized dose reduction techniques were utilized for this examination: 1. Automated exposure control 2. Adjustment of the mA and/or kV according to patient size 3. Use of iterative reconstruction technique COMPARISON: 07/03/2016 FINDINGS: No free air, free fluid, or fluid collection. Lower chest: The visualized lower lungs are aerated. No pleural or pericardial effusion. ABDOMEN: Liver: The noncontrast liver is homogeneous in attenuation. Gallbladder and biliary: Normal gallbladder without radiopaque stone. Normal caliber bile ducts. Spleen: Normal spleen. Pancreas: The noncontrast pancreas is homogeneous in attenuation without peripancreatic inflammatory changes. Adrenal glands: Normal adrenal glands. Kidneys and ureters: No opaque urinary calculi. Normal kidneys and ureters. GI tract: Debris within the stomach Normal caliber small bowel and colon. Large colonic stool burden. Normal appendix. Vascular structures: Normal caliber abdominal aorta. Lymph nodes: No lymphadenopathy in the abdomen or pelvis. PELVIS: Genitourinary system: Normal bladder. Normal prostate gland and seminal vesicles. SKELETAL STRUCTURES AND SOFT TISSUES: Multilevel degenerative changes of the spine. Multilevel predominately mild and moderate spinal canal stenosis and neural foraminal narrowing. IMPRESSION: 1. No hydronephrosis or opaque ureteral calculi. 2. Large colonic stool burden, which may reflect constipation. Electronically signed by: Murtaza Andrade MD (08/20/2019 7:15 AM) [facility] Course & Med Decision Making Course & Med Decision Making Pertinent Labs and Imaging studies reviewed. (See chart for details) Patient presents with left flank pain with radiation to left lower quadrant which is been intermittent for the last week. Symptomatic treatment provided. IV fluid hydration given. Labs obtained and posted to chart. CT abdomen/pelvis wi th findings consistent for constipation. Patient stable for discharge with outpatient follow-up with PCP. Discussed findings and plan with patient and family, who acknowledge understanding and agreement. Jarad Disclaimer Dragon Disclaimer This electronic medical record was generated, in whole or in part, using a voice recognition dictation system. Departure Departure: Impression: Primary Impression: Abdominal pain Additional Impression: Constipation Disposition: HOME, SELF-CARE Condition: STABLE Referrals: BRAN CARO MD (PCP) MELIDA RAMOS MD Patient Instructions: Abdominal Pain (Nonspecific), Constipation, Adult, [id number] Scripts Sennosides/Docusate Sodium (Colace 2-in-1 Tablet) 1 Each Tablet 1 TAB PO QHS PRN for CONSTIPATION, #30 TAB 0 Refills Prov: DEBBIE BURTON DO 08/20/19 Magnesium Citrate (MAGNESIUM CITRATE) 296 Ml Solution 296 ML PO ONCE for Constipation, #296 ML Prov: DEBBIE BURTON DO 08/20/19 Problem Qualifiers Primary Impression: Abdominal pain Abdominal location: left lower quadrant Qualified Codes: R10.32 - Left lower quadrant pain Additional Impression: Constipation Constipation type: unspecified constipation type Qualified Codes: K59.00 - Constipation, unspecified DEBBIE BURTON DO Aug 20, 2019 06:50
[2019-08-20] MEDS ORDERED: METOCLOPRAMIDE HCL 10 MG/2 ML VIAL. IVP ONE (07:00)
[2019-08-20] MEDS ORDERED: KETOROLAC 15 MG/ML VIAL. IVP ONE (07:00)
[2019-08-20] MEDS ORDERED: IV NORMAL SALINE 1,000ML 1,000 ML IV ONE (07:00)
[2019-08-20 07:09] LABS: BASO # 0.1 x10^3/uL (0.0-0.2); BASO % 3 % (0-3); EOS # 0.3 x10^3/uL (0.0-0.7); EOS % 9 % (0-3); HEMATOCRIT 44.9 % (39.0-53.0); HEMOGLOBIN 15.4 g/dL (13.0-17.5); LYMPH # 1.4 x10^3/uL (1.0-4.8); LYMPH % 46 % (24-48); MEAN CORPUSCULAR HEMOGLOBIN 32 pg (25-35); MEAN CORPUSCULAR HGB CONC 34 g/dL (31-37); MEAN CORPUSCULAR VOLUME 93 fL (79-100); MONO # 0.2 x10^3/uL (0.0-1.1); MONO % 7 % (0-9); NEUT # 1.1 x10^3uL (1.8-7.7); NEUT % 35 % (31-73); PLATELET COUNT 214 x10^3/uL (140-400); RED BLOOD COUNT 4.81 x10^6/uL (4.30-5.70); RED CELL DISTRIBUTION WIDTH 13.4 % (11.5-14.5); WHITE BLOOD COUNT 3.1 x10^3/uL (4.0-11.0)
--- NOTE | 2019-08-20 07:18 | RAD ---
CT ABDOMEN PELVIS WO CONTRAST INDICATION: Left flank pain EXAM: Noncontrast CT of the abdomen and pelvis. Coronal and sagittal reformatted images were performed. PQRS compliance statement: One or more of the following individualized dose reduction techniques were utilized for this examination: 1. Automated exposure control 2. Adjustment of the mA and/or kV according to patient size 3. Use of iterative reconstruction technique COMPARISON: 07/03/2016 FINDINGS: No free air, free fluid, or fluid collection. Lower chest: The visualized lower lungs are aerated. No pleural or pericardial effusion. ABDOMEN: Liver: The noncontrast liver is homogeneous in attenuation. Gallbladder and biliary: Normal gallbladder without radiopaque stone. Normal caliber bile ducts. Spleen: Normal spleen. Pancreas: The noncontrast pancreas is homogeneous in attenuation without peripancreatic inflammatory changes. Adrenal glands: Normal adrenal glands. Kidneys and ureters: No opaque urinary calculi. Normal kidneys and ureters. GI tract: Debris within the stomach Normal caliber small bowel and colon. Large colonic stool burden. Normal appendix. Vascular structures: Normal caliber abdominal aorta. Lymph nodes: No lymphadenopathy in the abdomen or pelvis. PELVIS: Genitourinary system: Normal bladder. Normal prostate gland and seminal vesicles. SKELETAL STRUCTURES AND SOFT TISSUES: Multilevel degenerative changes of the spine. Multilevel predominately mild and moderate spinal canal stenosis and neural foraminal narrowing. IMPRESSION: 1. No hydronephrosis or opaque ureteral calculi. 2. Large colonic stool burden, which may reflect constipation. Electronically signed by: Murtaza Andrade MD (08/20/2019 7:15 AM) [facility]
[2019-08-20 07:24] LABS: BACTERIA,URINE FEW /HPF (0-FEW); BILIRUBIN,URINE NEG (NEG); CLARITY,URINE HAZY; COLOR,URINE YELLOW; GLUCOSE,URINE NEG (NEG); NITRITE,URINE NEG (NEG); SQUAMOUS EPITHELIAL CELL,UR FEW /LPF; UROBILINOGEN,URINE 1 mg/dL (0.2 mg/dL)
[2019-08-20 07:24] LABS: ALBUMIN 3.9 g/dL (3.4-5.0); ALBUMIN/GLOBULIN RATIO 1.1 (1.0-1.7); CALCIUM 8.7 mg/dL (8.5-10.1); CREATININE 1.4 mg/dL (0.7-1.3); GFR 62.8; MAGNESIUM 1.9 mg/dL (1.8-2.4); POTASSIUM 4.3 mmol/L (3.5-5.1); TOTAL BILIRUBIN 0.4 mg/dL (0.2-1.0); TOTAL PROTEIN 7.4 g/dL (6.4-8.2)
[2019-08-20] MEDS ORDERED: SENN-121 PO (07:37)
[2019-08-20] MEDS ORDERED: MAGN296S9 PO (07:37)
[2019-08-20 07:47] VITALS: BP 138/79
== END 2019-08-20 07:49 | disposition home or self-care (01) ==
LOC: ER 06:16
DX: K59.00 Constipation, unspecified (principal); Z87.442 Personal history of urinary calculi; Z88.0 Allergy status to penicillin; Z88.1 Allergy status to other antibiotic agents; Z88.5 Allergy status to narcotic agent
CPT/HCPCS: 36415; 74176; 80053; 81001; 83605; 83690; 83735; 85025; 85610; 85730; 87086; 96374; 96375; 99285; J1885; J2765; J7030

== ENCOUNTER 2022-02-15 23:13 | Emergency (ER) | payer OTHER ==
[~2022-02-15] VITALS: Ht 170.2 cm; Wt 81.7 kg
[~2022-02-15 23:13] MED LIST changes: +AMLO-187 PO; -AMLO10TA8 PO; +MAGN296S68 PO; -MAGN296S9 PO; +SENN-121 PO
[2022-02-15] MEDS ORDERED: ONDANSETRON PF 4 MG/2 ML VIAL. IVP ONE (23:30)
[2022-02-15] MEDS ORDERED: IV NORMAL SALINE 1,000ML 1,000 ML IV ONE (23:30)
[2022-02-16 00:09] LABS: BASO # 0.1 x10^3/uL (0.0-0.2); BASO % 2 % (0-3); EOS # 0.1 x10^3/uL (0.0-0.7); EOS % 2 % (0-3); HEMATOCRIT 43.2 % (39.0-53.0); HEMOGLOBIN 14.8 g/dL (13.0-17.5); LYMPH # 1.4 x10^3/uL (1.0-4.8); LYMPH % 17 % (24-48); MEAN CORPUSCULAR HEMOGLOBIN 31 pg (25-35); MEAN CORPUSCULAR HGB CONC 34 g/dL (31-37); MEAN CORPUSCULAR VOLUME 91 fL (79-100); MONO # 0.5 x10^3/uL (0.0-1.1); MONO % 6 % (0-9); NEUT # 5.7 x10^3uL (1.8-7.7); NEUT % 73 % (31-73); PLATELET COUNT 210 x10^3/uL (140-400); RED BLOOD COUNT 4.77 x10^6/uL (4.30-5.70); RED CELL DISTRIBUTION WIDTH 13.4 % (11.5-14.5); WHITE BLOOD COUNT 7.9 x10^3/uL (4.0-11.0)
[2022-02-16 00:14] LABS: BACTERIA,URINE MANY /HPF (0-FEW); CLARITY,URINE CLOUDY; COLOR,URINE YELLOW; GLUCOSE,URINE NEG (NEG); NITRITE,URINE POS (NEG); SQUAMOUS EPITHELIAL CELL,UR FEW /LPF; WBC,URINE >40 /HPF (0-4)
[2022-02-16] MEDS ORDERED: MORPHINE SULFATE 4 MG/ML DISP.SYRIN. IV ONE (00:15)
[2022-02-16 00:17] LABS: CALCIUM 9.5 mg/dL (8.5-10.1); CREATININE 1.2 mg/dL (0.7-1.3); GFR 74.5
[2022-02-16 00:23] LABS: ALBUMIN 4.3 g/dL (3.4-5.0); ALBUMIN/GLOBULIN RATIO 1.1 (1.0-1.7); TOTAL BILIRUBIN 0.6 mg/dL (0.2-1.0); TOTAL PROTEIN 8.2 g/dL (6.4-8.2)
--- NOTE | 2022-02-16 00:40 | PHYS DOC ---
Past History Past Medical History: Kidney Stones Additional Past Medical Histor: back problems Past Surgical History: Other Additional Past Surgical Histo: back and neck, 2 hemorrhoid Smoking: Non-smoker Alcohol Use: None Drug Use: None General Adult EDM: Chief Complaint: ABDOMINAL PAIN HPI: HPI: 61-year-old male presents with abdominal pain and left flank pain. He mostly complains of a left lateral pressure sensation. It has been getting worse throughout the day. Patient also has years to urinate but can only go a little bit at a time. He also has dysuria. Patient has had a kidney stone in the past but he states this feels different. Denies fever or chills. Review of Systems: Review of Systems: Constitutional: Denies fever or chills Eyes: Denies change in visual acuity HENT: Denies nasal congestion or sore throat Respiratory: Denies cough or shortness of breath Cardiovascular: Denies chest pain or edema GI: Lower abdominal pain. Denies nausea, vomiting, bloody stools or diarrhea : Dysuria, urinary retention Musculoskeletal: Left flank pain Integument: Denies rash Neurologic: Denies headache, focal weakness or sensory changes Endocrine: Denies polyuria or polydipsia Lymphatic: Denies swollen glands Psychiatric: Denies depression or anxiety Current Medications: Current Meds: Current Medications Medications (Trade) Dose Ordered Sig/[facility] Start Time Stop Time Status Last Admin Dose Admin Morphine Sulfate (Morphine 4mg Syringe) 4 mg 1X ONCE 02/16/22 00:15 02/16/22 00:18 DC 02/16/22 00:20 4 MG Ondansetron HCl (Zofran) 4 mg 1X ONCE 02/15/22 23:30 02/15/22 23:31 DC 02/16/22 00:00 4 MG Sodium Chloride 1,000 ml @ 1,000 mls/hr 1X ONCE 02/15/22 23:30 02/16/22 00:29 DC 02/16/22 00:00 1,000 MLS/HR Allergies: Allergies: Allergies Coded Allergies Type Severity Reaction Last Updated Verified Penicillins Allergy Intermediate 04/12/16 Yes amoxicillin Allergy Intermediate Itching 08/20/19 Yes hydrocodone Allergy Intermediate 04/12/16 Yes Physical Exam: PE: Constitutional: Well developed, well nourished, mild acute distress, non-toxic appearance. [] HENT: Normocephalic, atraumatic, bilateral external ears normal, oropharynx moist, no oral exudates, nose normal. [] Eyes: PERRLA, EOMI, conjunctiva normal, no discharge. [] Neck: Normal range of motion, no tenderness, supple, no stridor. [] Cardiovascular:Heart rate regular rhythm, no murmur [] Lungs & Thorax: Bilateral breath sounds clear to auscultation [] Abdomen: Bowel sounds normal, soft, lower abdominal tenderness, no masses, no pulsatile masses. [] Skin: Warm, dry, no erythema, no rash. [] Back: No tenderness, left CVA tenderness. [] Extremities: No tenderness, no cyanosis, no clubbing, ROM intact, no edema. [] Neurologic: Alert and oriented X 3, normal motor function, normal sensory function, no focal deficits noted. [] Psychologic: Affect normal, judgement normal, mood normal. [] Current Patient Data: Labs: Laboratory Tests Test 02/15/22 23:35 02/15/22 23:54 White Blood Count 7.9 x10^3/uL (4.0-11.0) Red Blood Count 4.77 x10^6/uL (4.30-5.70) Hemoglobin 14.8 g/dL (13.0-17.5) Hematocrit 43.2 % (39.0-53.0) Mean Corpuscular Volume 91 fL (79-100) Mean Corpuscular Hemoglobin 31 pg (25-35) Mean Corpuscular Hemoglobin Concent 34 g/dL (31-37) Red Cell Distribution Width 13.4 % (11.5-14.5) Platelet Count 210 x10^3/uL (140-400) Neutrophils (%) (Auto) 73 % (31-73) Lymphocytes (%) (Auto) 17 % (24-48) L Monocytes (%) (Auto) 6 % (0-9) Eosinophils (%) (Auto) 2 % (0-3) Basophils (%) (Auto) 2 % (0-3) Neutrophils # (Auto) 5.7 x10^3uL (1.8-7.7) Lymphocytes # (Auto) 1.4 x10^3/uL (1.0-4.8) Monocytes # (Auto) 0.5 x10^3/uL (0.0-1.1) Eosinophils # (Auto) 0.1 x10^3/uL (0.0-0.7) Basophils # (Auto) 0.1 x10^3/uL (0.0-0.2) Sodium Level 139 mmol/L (136-145) Potassium Level 4.0 mmol/L (3.5-5.1) Chloride Level 103 mmol/L (98-107) Carbon Dioxide Level 23 mmol/L (21-32) Anion Gap 13 (6-14) Blood Urea Nitrogen 12 mg/dL (8-26) Creatinine 1.2 mg/dL (0.7-1.3) Estimated GFR (Cockcroft-Gault) 74.5 BUN/Creatinine Ratio 10 (6-20) Glucose Level 102 mg/dL (70-99) H Calcium Level 9.5 mg/dL (8.5-10.1) Total Bilirubin 0.6 mg/dL (0.2-1.0) Aspartate Amino Transferase (AST) 30 U/L (15-37) Alanine Aminotransferase (ALT) 39 U/L (16-63) Alkaline Phosphatase 101 U/L (46-116) Total Protein 8.2 g/dL (6.4-8.2) Albumin 4.3 g/dL (3.4-5.0) Albumin/Globulin Ratio 1.1 (1.0-1.7) Urine Collection Type Unknown Urine Color Yellow Urine Clarity Cloudy Urine pH 6.0 Urine Specific [place] 1.015 Urine Protein 30 mg/dl (NEG-TRACE) Urine Glucose (UA) Neg mg/dL (NEG) Urine Ketones (Stick) Neg mg/dL (NEG) Urine Blood Large (NEG) Urine Nitrite Pos (NEG) Urine Bilirubin Neg (NEG) Urine Urobilinogen Dipstick 1.0 mg/dL (0.2 mg/dL) Urine Leukocyte Esterase Mod (NEG) Urine RBC 6-10 /HPF (0-2) Urine WBC >40 /HPF (0-4) Urine Squamous Epithelial Cells Few /LPF Urine Bacteria Many /HPF (0-FEW) Vital Signs: Vital Signs Date Time Temp Pulse Resp B/P (MAP) Pulse Ox O2 Delivery O2 Flow Rate FiO2 02/16/22 00:20 22 100 Room Air 02/15/22 23:20 99.1 120 141/96 (111) EKG: EKG: [] Radiology/Procedures: Radiology/Procedures: [] Impressions: EXAM: CT Abdomen and Pelvis without IV contrast CLINICAL HISTORY: left flank pain, dysuria COMPARISON: 08/20/2019 TECHNIQUE: Helical CT of the abdomen and pelvis without intravenous contrast. Axial, coronal and sagittal reformatted images were generated. PQRS compliance statement - One or more of the following individualized dose reduction techniques were utilized for this study: 1. Automated exposure control 2. Adjustment of the mA and/or kV according to patient size 3. Use of iterative reconstruction technique FINDINGS: Lack of intravenous contrast limits evaluation of solid organs, vasculature, and lymph nodes. Lower chest: Patchy opacities right lower lobe possibly atelectasis. Abdomen and Pelvis: No focal liver lesion. Gallbladder is normal. No biliary ductal dilatation. Pancreas, spleen and adrenal glands are unremarkable. There is mild edematous appearance of the left kidney with infiltration about the left ureter. No left renal tract calculus. Appendix is normal. Moderate colonic stool content is seen. No small or large bowel dilatation. No bowel obstruction. Bladder wall thickening may be seen with cystitis. Mildly prominent iliac chain and inguinal lymph nodes, some of which are borderline enlarged. No abdominal or pelvic ascites. No abdominal or pelvic lymphadenopathy. Bones: No aggressive osseous lesion. Multilevel degenerative changes of the lumbar spine mildly progressed compared to 08/20/2019 IMPRESSION: 1. There is infiltration about the left ureter as well as the bladder likely from cystitis and ascending infection. No renal tract calculus. 2. Mildly prominent to borderline enlarged iliac chain and inguinal lymph nodes. These may be reactive, many are increased in size compared to 08/20/2019 Recommend close attention on follow-up. Electronically signed by: Sukumar Read MD (02/16/2022 12:56 AM) [facility] DICTATED AND SIGNED BY: SUKUMAR READ MD DATE: 02/16/22 0053 CC: ALBANIA HANNAH DO; BRAN CARO MD ~ Heart Score: C/O Chest Pain: N/A Risk Factors: Risk Factors: DM, Current or recent (<one month) smoker, HTN, HLP, family history of CAD, obesity. Risk Scores: Score 0 - 3: 2.5% MACE over next 6 weeks - Discharge Home Score 4 - 6: 20.3% MACE over next 6 weeks - Admit for Clinical Observation Score 7 - 10: 72.7% MACE over next 6 weeks - Early Invasive Strategies Course & Med Decision Making: Course & Med Decision Making Pertinent Labs and Imaging studies reviewed. (See chart for details) The patient is having significant discomfort and difficulty urinating. I have treated him with Zofran, fluids, and 4 mg of morphine. This is helped significantly with his pain. He has been able to urinate a higher volume. The patient has a significant urinary tract infection possibly suggestive of pyelonephritis. He does not have a fever or chills in the emergency room. His tachycardia is likely related to his pain and discomfort. He does not have other indications of sepsis. I will treat him with 2 g of Rocephin and discharge him with oral levofloxacin. I have advised the patient that if he develops a fever or his condition worsens in any way that he may need to come back to the emergency room to be admitted to the hospital for IV antibiotics. He states verbal understanding. He is stable for discharge at this time. [] Jarad Disclaimer: Jarad Disclaimer: This electronic medical record was generated, in whole or in part, using a voice recognition dictation system. Departure Departure: Impression: Primary Impression: Pyelonephritis Disposition: HOME / SELF CARE / HOMELESS Condition: STABLE Referrals: BRAN CARO MD (PCP) Patient Instructions: Pyelonephritis, Adult, [id number] Scripts Levofloxacin (LEVOFLOXACIN) 750 Mg Tablet 1 TAB PO DAILY for UTI, #7 TAB Prov: ALBANIA HANNAH DO 02/16/22 ALBANIA HANNAH DO Feb 16, 2022 00:40
--- NOTE | 2022-02-16 00:59 | RAD ---
EXAM: CT Abdomen and Pelvis without IV contrast CLINICAL HISTORY: left flank pain, dysuria COMPARISON: 08/20/2019 TECHNIQUE: Helical CT of the abdomen and pelvis without intravenous contrast. Axial, coronal and sagi ttal reformatted images were generated. PQRS compliance statement - One or more of the following individualized dose reduction techniques wer e utilized for this study: 1. Automated exposure control 2. Adjustment of the mA and/or kV according to patient size 3. Use of iterative reconstruction technique FINDINGS: Lack of intravenous contrast limits evaluation of solid organs, vasculature, and lymph nodes. Lower chest: Patchy opacities right lower lobe possibly atelectasis. Abdomen and Pelvis: No focal liver lesion. Gallbladder is normal. No biliary ductal dilatation. Pancreas, spleen and adre nal glands are unremarkable. There is mild edematous appearance of the left kidney with infiltration about the left ureter. No lef t renal tract calculus. Appendix is normal. Moderate colonic stool content is seen. No small or large bowel dilatation. No bowel obstruction. Bladder wall thickening may be seen with cystitis. Mildly prominent iliac chain and inguinal lymph no julia, some of which are borderline enlarged. No abdominal or pelvic ascites. No abdominal or pelvic lymphadenopathy. Bones: No aggressive osseous lesion. Multilevel degenerative changes of the lumbar spine mildly progressed c ompared to 08/20/2019 IMPRESSION: 1. There is infiltration about the left ureter as well as the bladder likely from cystitis and ascen ding infection. No renal tract calculus. 2. Mildly prominent to borderline enlarged iliac chain and inguinal lymph nodes. These may be reacti ve, many are increased in size compared to 08/20/2019 Recommend close attention on follow-up. Electronically signed by: Sukumar Read MD (02/16/2022 12:56 AM) [facility]
[2022-02-16] MEDS ORDERED: LEVO750T5 PO (01:34)
[2022-02-16] MEDS ORDERED: IV NORMAL SALINE 100ML 100 ML ONE (01:39)
[2022-02-16] MEDS ORDERED: oxyCODONE/APAP 5/325 1 TAB TABLET PO ONE (01:45)
[2022-02-16 01:53] VITALS: BP 145/91
== END 2022-02-16 02:18 | disposition home or self-care (01) ==
LOC: ER 23:13
DX: N12 Tubulo-interstitial nephritis, not specified as acute or chronic (principal); Z87.442 Personal history of urinary calculi; Z88.0 Allergy status to penicillin; Z88.1 Allergy status to other antibiotic agents; Z88.5 Allergy status to narcotic agent
CPT/HCPCS: 36415; 74176; 80053; 81001; 85025; 87077; 87086; 87186; 96361; 96365; 96375; 99285; J0696; J2270